=== PATIENT | male | born 1990 | race African-American/Black ===

== ENCOUNTER 2016-11-28 11:13 | Emergency (ER) | payer OTHER ==
[~2016-11-28] VITALS: Ht 180.3 cm; Wt 60.7 kg
[2016-11-28 11:55] LABS: ADD MIUA? YES; BILIRUBIN NEGATIVE; BLOOD SMALL; COLOR YELLOW ((YELLOW)); GLUCOSE (STRIP) NEGATIVE; KETONES NEGATIVE; LEUKOCYTES NEGATIVE; NITRITE NEGATIVE; PROTEIN (STRIP) NEGATIVE; SPECIFIC GRAVITY 1.015 (1.000-1.030); UROBILINOGEN 0.2 MG/DL (0.2-1.0)
[2016-11-28 12:00] LABS: BACTERIA NONE SEEN /HPF; EPITHELIAL CELLS NONE SEEN /HPF; MUCUS NONE SEEN /LPF; RED BLOOD CELLS 0-5 /HPF (0-5); UCUL ADDED? NO; WHITE BLOOD CELLS 0-5 /HPF (0-5)
[2016-11-28 12:19] LABS: MCH 27.9 PG (29.0-34.0); MCV 87.4 FL (86-99); MEAN PLAT.VOLUME 11.9 uM^3 (9.0-12.4); PLATELET COUNT 136 K/uL (156-360); RBC DIS.WIDTH-CV 12.2 % (11.8-14.6); RBC DIS.WIDTH-SD 39.1 % (39-53); RED BLOOD COUNT 4.69 M/uL (4.00-5.50); WHITE BLOOD COUNT 3.8 K/uL (4.1-10.2)
[2016-11-28 12:37] LABS: CHLORIDE 108 mEq/L (99-109); POTASSIUM 3.6 mEq/L (3.7-5.4); SODIUM 141 mEq/L (136-147)
[2016-11-28 12:39] LABS: GLUCOSE 79 mg/dL (70-99)
[2016-11-28 12:40] LABS: ANION GAP 11 MEQ/L (2-14)
[2016-11-28 12:41] LABS: TOTAL BILIRUBIN 0.4 mg/dL (0.0-1.0)
[2016-11-28 12:42] LABS: ALKALINE PHOSPHATASE 55 IU/L (3-129)
[2016-11-28 12:44] LABS: UREA NITROGEN (BUN) 12 mg/dL (9-23)
[2016-11-28 12:55] LABS: GFR ESTIMATE (CALCULATED) > 59 mL/min/
[2016-11-28] MEDS ORDERED: ZOFRAN ODT4 MG PO (14:09)
[2016-11-28 14:33] VITALS: BP 120/62
== END 2016-11-28 14:34 | disposition home or self-care (01) ==
LOC: EME 11:13
DX: R11.2 Nausea with vomiting, unspecified (principal); R31.9 Hematuria, unspecified
CPT/HCPCS: 80053; 81003; 85027; 99281; 99283; J0696